=== PATIENT | female | born 1935 | race Asian ===

== ENCOUNTER 2019-02-19 08:33 | Day surgery (SDC) | payer OTHER | END 2019-02-19 10:25 | disposition home or self-care (01) | LOC: OR 08:33 | PROC: 3E0T3TZ Introduction of Destructive Agent into Peripheral Nerves and Plexi, Percutaneous Approach (ICD-10-PCS; principal; 2019-02-19) | PROC: BR16YZZ Fluoroscopy of Lumbar Facet Joint(s) using Other Contrast (ICD-10-PCS; 2019-02-19) | DX: M47.817 Spondylosis without myelopathy or radiculopathy, lumbosacral region (principal) | CPT/HCPCS: J2001 ==